=== PATIENT | male | born 1950 | race Caucasian/White ===

== ENCOUNTER → 2019-03-14 | Outpatient (CLI) | payer OTHER | LOC: M.RAD 14:02 | DX: M25.512 Pain in left shoulder (principal); G89.29 Other chronic pain ==

== ENCOUNTER → 2019-08-23 | Outpatient (CLI) | payer OTHER | LOC: M.RAD 12:57 | DX: I51.7 Cardiomegaly (principal); J01.01 Acute recurrent maxillary sinusitis; M47.814 Spondylosis without myelopathy or radiculopathy, thoracic region; M46.04 Spinal enthesopathy, thoracic region ==